=== PATIENT | female | born 1990 | race Caucasian/White ===

== ENCOUNTER → 2018-01-20 19:11 | Observation (INO) ==
--- NOTE | 2018-01-20 19:13 | OB/GYN Progress Note ---
Date of Encounter: 01/20/18 Time of Encounter: 19:10 - Assessment and Plan (1) 37 weeks gestation of Current Visit: Yes Status: Acute (2) Encounter for suspected PROM, with rupture of membranes not found Current Visit: Yes Status: Acute Nitrazine and fern negative. Discharged home with labor and when to return to triage precautions. Subjective - Subjective Interval history: 37+1 reports a trickle earlier this evening and concerned for SROM. Reports good movement, denies vaginal bleeding or contractions. Antepartum ROS: loss of fluid, movement normal, no vaginal bleeding, no contractions Objective - Vital Signs Vital Signs: Intake and Output 01/20/18 01/20/18 01/20/18 07:59 15:59 23:59 Other: Weight 105.5 kg Patient Weight 01/20/18 23:59 Weight 105.5 kg - Exam FHR: auscultation normal Abdomen: Present: normal appearance, soft, gravid
[2018-01-20 19:48] LABS: Amphetamine Screen,Urine Negative ng/mL (Cutoff=1000); Barbiturate Screen,Urine Negative ng/mL (Cutoff=200); Benzodiazepines Screen,Urine Negative ng/mL (Cutoff=200); Cannabinoid Screen,Urine Negative ng/mL (Cutoff = 50); Cocaine Screen,Urine Negative ng/mL (Cutoff= 300); Opiate Screen,Urine Negative ng/mL (Cutoff=300); Phencyclidine Screen,Urine Negative ng/mL (Cutoff=25)
== END | disposition home or self-care (01) ==
LOC: 1NENULAB
PROVIDERS: ADMIT Obstetrics & Gynecology; ATTEND Obstetrics & Gynecology

== ENCOUNTER 2018-02-02 08:00 | Inpatient (IN) ==
[2018-02-02] MEDS ORDERED: Naloxone 0.4 MG/ML INJ IVP PRN ×2 (08:31→14:51)
[2018-02-02] MEDS ORDERED: Ondansetron 4 MG/2 ML VIAL IVP PRN ×2 (08:31→14:51)
[2018-02-02] MEDS ORDERED: Metoclopramide 10 MG/2 ML VIAL IVP PRN (08:31)
[2018-02-02] MEDS ORDERED: miSOPROStol 25 MCG TABLET PO PRN (08:31)
[2018-02-02] MEDS ORDERED: Famotidine 20 MG/2 ML VIAL IVP PRN (08:31)
[2018-02-02] MEDS ORDERED: Ringers Solution, Lactated 1,000 ML IVC SCH (08:45)
[2018-02-02 09:04] LABS: Basophils % 0.5 %; Eosinophils # 0.1 K/mcL (0.0-0.6); Eosinophils % 0.9 %; Hematocrit 36.6 % (35.3-44.9); Hemoglobin 12.3 g/dL (11.5-15.4); Immature Granulocytes % 1.7 % (0-4); Lymphocytes # 1.8 K/mcL (0.6-4.6); Lymphocytes % 22.8 %; Mean Corpuscular HGB Conc 33.6 g/dL (31.6-35.5); Mean Corpuscular Hemoglobin 30.2 pg (28.0-33.3); Mean Corpuscular Volume 89.9 fL (83.0-100.0); Mean Platelet Volume 11.6 fL (9.4-12.4); Monocytes # 0.6 K/mcL (0.0-1.3); Monocytes % 7.7 %; Neutrophils # 5.2 K/mcL (1.6-8.9); Platelet Count 196 K/mcL (140-400); Red Blood Count 4.07 M/mcL (3.82-4.97); Red Cell Distribution Width 15.2 % (11.5-14.5); Segmented Neutrophils % 66.4 %
--- NOTE | 2018-02-02 09:31 | OB/GYN History & Physical ---
Date of Encounter: 02/02/18 Time of Encounter: 09:29 Assessment and Plan (1) Elective induction of labor planned Current visit: No Status: Acute Admit to labor and delivery Cytotec by mouth [address] cervical Etienne Nubain and epidural as desired Plan of care discussed with Dr. Cuevas Anticipate (2) 39 weeks gestation of Current visit: No Status: Chronic History of Present Illness HPI: Ms. Lucero is a 27 year old female 39+0 weeks gestation here for an elective induction of labor. care with Dr. Cuevas, uncomplicated course. Reports good movement, denies vaginal bleeding or leaking of fluid. Labs: A+, rubella and varicella immune, GBS negative, all other serologies negative Past Med Surg Social Fam HX - Past Medical History Medical history: no medical history Psychiatric history: no psych history - Past Surgical History Surgical History: other - Social History Smoking Status: Never smoker Smokeless Tobacco Status: No Alcohol use: none Drug use: none - Family History Mother Adopted: No Living Status: Age at : 19 Cause of : DE after child Hx Family Cardiac Disorders: Yes (cardiomyopathy, DE) Hx Family Respiratory Disorders: No Hx Family Cancer: No Hx Family GI Disorders: No Hx Family Genitourinary Disorders: No Hx Family Endocrine Disorder: No Hx Family Musculoskeletal Disorders: No Hx Family Neuromuscular Disorders: No Hx Family Neurologic Disorders: No Hx Family HEENT Disorders: No Hx Family Autoimmune Disorders: No Hx Family Reproductive Disorders: No Hx Family Psychosocial Disorders: No Hx Family Medical Disorders: No Obstetrical History - Pregnancies : 2 Para: 1 Term: 1 : 0 Ab's: 0 Livin Medications and Allergies Vit/FA 1 tab PO DAILY 06/14/15 [History] 3 Allergy/AdvReac Type Severity Reaction Status Date / Time No Known Allergies Allergy Verified 06/14/15 19:09 Exam - Constitutional Constitutional: well developed, well nourished, no acute distress, average body habitus - Neck Neck exam: full ROM - Lungs Respiratory exam: CTAB - Cardiovascular Cardiovascular exam: RRR - Abdomen Abdomen: Present: bowel sounds normal, gravid, non tender - Extremities Extremities exam: normal capillary refill, normal inspection - Cervix Dilation: 1 (per RN) Effacement: 50 Station: -2 Results Result Diagrams: 02/02/18 08:33 Abnormal lab results RDW 15.2 % (11.5-14.5) H 02/02/18 08:33 All other labs normal. - VTE Reasons for not Prescribing Prophylaxis: Treatment not Indicated - Low risk for VTE
[2018-02-02 10:18] LABS: Amphetamine Screen,Urine Negative ng/mL (Cutoff=1000); Barbiturate Screen,Urine Negative ng/mL (Cutoff=200); Benzodiazepines Screen,Urine Negative ng/mL (Cutoff=200); Cannabinoid Screen,Urine Negative ng/mL (Cutoff = 50); Cocaine Screen,Urine Negative ng/mL (Cutoff= 300); Opiate Screen,Urine Negative ng/mL (Cutoff=300); Phencyclidine Screen,Urine Negative ng/mL (Cutoff=25)
[2018-02-02] MEDS ORDERED: Oxytocin 20 units/ LR 1000 mL 20 UNIT/1,000 ML BAG IVC SCH ×2 (13:15→21:57)
[2018-02-02] MEDS ORDERED: *HR* FentaNYL (PF) 100 MCG/2 ML VIAL EP ONE (14:51)
[2018-02-02] MEDS ORDERED: EPHEDrine 50 MG/ML VIAL IVP PRN (14:51)
[2018-02-02] MEDS ORDERED: Bupivacaine-MPF 0.25% 10 ML VIAL EP ONE (14:51)
[2018-02-02] MEDS ORDERED: Epidural Premix (fent/bupiv) 110 ML EP ONE (14:52)
[2018-02-02] MEDS ORDERED: Epidural Premix (fent/bupiv) 110 ML EP SCH (15:00)
--- NOTE | 2018-02-02 15:36 | Anesthesia Evaluation PreOp ---
Date of Encounter: 02/02/18 Time of Encounter: 14:57 - Past History Planned Operation: SOMMER Cardiac History: Denies any Significant Hx Pulmonary History: Denies Any Significant HX FLOOR PLAN ADJUSTER History: Denies Any Significant HX Other Medical History: Denies Any Significant HX Anesthesia History: No Prior Anesthetic Complications, Past Anesthesia (T&A) : Yes Alcohol Use: none Drug use: none Medications and Allergies Vit/FA 1 tab PO DAILY 06/14/15 [History] 3 Allergy/AdvReac Type Severity Reaction Status Date / Time No Known Allergies Allergy Verified 06/14/15 19:09 - Meds/Allergy Pre-op Review Medications Reviewed: Yes Allergies Reviewed: Yes Beta Blockers on Current Med List: No Anesthesia Results - Labs 02/02/18 08:33 Anesthesia Exam BP 129/56 P 78 R 18 T 99.3 Height: 5'4" Weight: 105.7 NPO (# of Hours): 12 Pain Scale: 7 Pain Scale Used: Numeric (1 - 10) - HEENT Pupil (Motor): Pupils equal Mallampati: II Teeth: Normal Oral Opening: Greater than 3 - FLOOR PLAN ADJUSTER LOC: Oriented FLOOR PLAN ADJUSTER Motor: Normal RUE, Normal LUE, Normal RLE, Normal LLE, Normal Face FLOOR PLAN ADJUSTER Sensory: Normal: RUE, LUE, RLE, LLE, Face - Cardiac Rhythm: Regular Murmur: None JVD: No Carotid Bruit: No - Pulmonary Breath Sounds: bilateral Clear Respiratory Effort: Symmetrical Anesthesia Assess/Plan ASA Score: 2 Modified Dominick Scale for Level of Consciousness: Cooperative, oriented, and tranquil Anesthetic Plan: Regional Autologous Blood: No Monitoring Plan: Standard Monitors Recovery Plan: Other
--- NOTE | 2018-02-02 15:40 | Anesthesia Procedures ---
Date of Encounter: 02/02/18 Time of Encounter: 14:57 Procedures: Anesthesia - Epidural/Spinal Patient ID/Chart reviewed: Yes Patient examined: Yes OB Eval: Gestational age: 39 OB Eval: : 2 OB Eval: Hx Para: 1 OB Eval: Dilated at (cm): 5 OB Eval: Contractions: Non-stressed pattern Consent Obtained: Yes Supplemental Oxygen: None/Room Air Site Prep: Aseptic Technique, Sterile prep and drape, Povidone-Iodine 1% Patient position: upright Amount of Local Anesthetic used: 3 Touhy Needle Gauge: 18 Touhy Needle Depth (cm): 6 Catheter Depth at Skin (cm): 15 Test Dose (1.5% Lido + Epi): Volume given (mls): 3 Test Dose Result: Negative Loading Dose: 0.25% Marcaine (mls): 10 Loading Dose: Fentanyl (mcg): 100 Loading Dose Administered: Thru Catheter Infusion Med: 0.125% Bupivacaine w/ 2 mcg/ml Fentanyl Infusion Rate (mls/hr): [address]: Tegaderm, Tape Interspace Used: L3-L4 Loss of Resistance (STACIE): Yes Blood: No CSF: No Paresthesia: No Procedure: SOMMER placed 1st pass in upright position without any immediate noted complications. VSS and FHT stable throughout. Vitals + FHT's: 1457 129/56 P 78 R 18 1530 BP 106/65 P 80 R 16
--- NOTE | 2018-02-02 15:51 | OB Labor Progress Note ---
Date of Encounter: 02/02/18 Time of Encounter: 15:49 Labor Progress Note - Subjective Subjective: Pt comfortable with epidural - Cervix Cervix: 5/80/-3 - Heart Tones Heart Tones: 135/moderate/+accels/-decels - [place]: q2 - Plan Plan: Will AROM after hunt placement Continue pitocin per policy Frequent repositioning Dr. Cuevas updated Anticipate
--- NOTE | 2018-02-02 18:40 | OB Labor Progress Note ---
Date of Encounter: 02/02/18 Time of Encounter: 18:23 Labor Progress Note - Subjective Subjective: Patient very comfortable after her epidural. - Cervix Cervix: 6/80/-2 vertex - Heart Tones Heart Tones: Category 1 FHR tracing - [place]: q 2 minutes - Interventions Interventions: AROM with large amount of clear fluid - Plan Plan: Continue pitocin induction with anticipation of vaginal delivery.
--- NOTE | 2018-02-02 21:18 | OB/GYN Procedure Note ---
Delivery - Delivery Date: 02/02/18 Provider: Randa Cuevas Intrapartum events: none Delivery induction: AROM, oxytocin, hunt Delivery monitor: external FHT, external uterine Anesthesia: epidural Estimated Blood Loss: 200 - (s) A Delivery Date: 02/02/18 Delivery Time: 20:59 Presentation: vertex Position: OMAR Route of delivery: Gender: Male Viability: Viable Pounds: 7 Ounces: 10 Weight Gram: 3.465 kg at 1 minute: 8 at 5 mins: 9 Shoulder Dystocia: not encountered Specimens collected: cord blood Placenta: spontaneous Cord: 3 umbilical vessels - Repair Episiotomy: none Laceration Description: Perineal - 1st Degree - Complications Delivery complications: none Delivery comments: Called to room with patient complete and +1 station. Under maternal effort she delivered a viable male weighing 7 lbs. 10 oz. and Apgars 8 and 9 at one and 5 minutes respectively over a first-degree perineal laceration. Following delivery of the head the was bulb suctioned. There was no nuchal cord or shoulder dystocia encountered. Following delivery of the was placed on mom's abdomen. Cord was allowed to cease pulsations and then was double clamped and cut. Cord blood was collected. Placenta delivered spontaneously, complete, and intact with a three-vessel cord. First degree perineal laceration repaired using 3-0 Vicryl in standard fashion. Sponge and needle counts correct at the end of the procedure mother and recovering in the LDR in stable condition. - Disposition Mom disposition: stable in LDR disposition: stable in LDR
[2018-02-02] MEDS ORDERED: Acetaminophen 325 MG TABLET PO PRN (21:57)
[2018-02-02] MEDS ORDERED: Ibuprofen 600 MG TABLET PO PRN (21:57)
[2018-02-02] MEDS ORDERED: Oxytocin 20 units/ LR 1000 mL 20 UNIT/1,000 ML BAG IVC ONE (21:57)
[2018-02-03] MEDS ORDERED: Prenatal Vit/FA 1 EACH TABLET PO SCH (09:00)
--- NOTE | 2018-02-03 10:58 | Discharge Summary ---
Date of Encounter: 02/03/18 Time of Encounter: 10:56 - Discharge Diagnosis (1) Vaginal delivery Priority: Primary Status: Acute Comments: Pain well controlled with by mouth pain meds Out of bed without dizziness Tolerating regular diet Voiding normally Passing flatus, but no BM yet Lochia light Ambulating independently Discharge home tonight (2) Vaginal tear resulting from childbirth Priority: Secondary Status: Acute Comments: Continue witch vicky pads and dermoplast as needed - Discharge Medications Prescriptions: Ibuprofen [Motrin] 600 mg PO Q6HR PRN #30 tablet PRN Reason: Cramping Docusate [Colace] 100 mg PO BID #60 capsule Home Medications: Vit/FA 1 tab PO DAILY 06/14/15 [History] Acetaminophen [Tylenol] 650 mg PO Q6HR PRN tablet 02/03/18 [Rx] Docusate [Colace] 100 mg PO BID #60 capsule 02/03/18 [Rx] Ibuprofen [Motrin] 600 mg PO Q6HR PRN #30 tablet 02/03/18 [Rx] Allergies/Adverse Reactions: 3 Allergy/AdvReac Type Severity Reaction Status Date / Time No Known Allergies Allergy Verified 06/14/15 19:09 Data Procedures and tests throughout hospitalization: Laboratory Tests 02/02/18 02/02/18 08:33 09:55 WBC 7.8 RBC 4.07 Hgb 12.3 Hct 36.6 MCV 89.9 MCH 30.2 MCHC 33.6 RDW 15.2 H Plt Count 196 MPV 11.6 Immature Gran % 1.7 Seg Neutrophils % 66.4 Lymphocytes % 22.8 Monocytes % 7.7 Eosinophils % 0.9 Basophils % 0.5 Neutrophils # 5.2 Lymphocytes # 1.8 Monocytes # 0.6 Eosinophils # 0.1 Basophils # 0.0 Urine Opiates Screen Negative Ur Barbiturates Screen Negative Ur Phencyclidine Scrn Negative Ur Amphetamines Screen Negative U Benzodiazepines Scrn Negative Urine Cocaine Screen Negative U Marijuana (THC) Screen Negative Date of admission: 02/02/18 08:06 Primary care physician: PCP NONE Consults: 02/02/18 21:57 Consult to Track Layer [CONS] Routine Comment: Vaginal delivery, consult needed Discharging clinician: Rosina Barlow Anticipated date of discharge: 02/03/18 - Patient Status Disposition: Home, Self-Care Condition: Critical Functional capacity at discharge: independent ambulation Overall status at discharge: patient is progressing back to baseline - Discharge Instructions Follow Up With: NONE,PCP [Primary Care Provider] - Randa Cuevas DO [Partnered Physician] - - Diet and Activity Activity: increase activity as tolerated Diet: regular diet Hospital Course Reason for admission: induction of labor, IUP at term Delivery: Episiotomy: none Laceration: 1st degree Other procedures: none complications: none Discharge diagnosis: IUP at term delivered [place] baby: male Time Attestation: Total time spent providing and/or coordinating discharge services: Time Spent: Less than 30 minutes Exam - Constitutional Vitals: Temp Pulse Resp BP Pulse Ox 98.2 F 67 14 110/62 96 02/03/18 01:39 02/03/18 01:39 02/03/18 01:39 02/03/18 01:39 02/03/18 01:39 General appearance IM: A&O X 3 - Respiratory Respiratory exam: Present: CTAB - Cardiovascular Cardiovascular exam IM: Present: RRR, +S1, +S2 - GI/Abdominal GI/Abdominal exam IM: normal bowel sounds, no peritoneal signs - Rectal Rectal exam: deferred - Uterine Tone: Firm Uterus Position: At Umbilicus, Midline - Extremities Exam Extremities exam IM: Present: normal capillary refill, radial pulses palpable and symmetrical - Neurological Exam Neurological exam: alert, oriented X3 - Psychiatric Additional comments: Patient denies any history of anxiety or depression. Signs and symptoms of depression discussed and patient verbalizes when to call for help.
[2018-02-03 16:42] VITALS: BP 119/77
== END 2018-02-03 21:30 | disposition home or self-care (01) | DRG 775 ==
LOC: 1NENULAB 08:06 → 1NENUOBS 23:55
PROVIDERS: ADMIT Obstetrics & Gynecology; ATTEND Obstetrics & Gynecology

== ENCOUNTER → 2020-06-07 10:31 | Observation (INO) ==
[2020-06-07 09:23] LABS: Bilirubin,Urine Negative (Negative); Blood,Urine Moderate (Negative); Clarity,Urine Clear (Clear); Color,Urine Yellow (Yellow); Glucose,Urine (UA) Normal (Normal); Ketones,Urine Negative (Negative); Leukocyte Esterase,Urine Negative (Negative); Nitrite,Urine Negative (Negative); Protein,Urine Trace mg/dL (Neg-Trace); Specific Gravity,Urine >= 1.030 (1.010-1.025); Urobilinogen,Urine Normal (Normal)
[2020-06-07 09:40] LABS: Bacteria,Urine Few per hpf (None-Few); Calcium Oxalate Crystals,Urine Present; Mucus,Urine Few per lpf (None-Few); Squamous Epithelial Cell,Urine Few per hpf (None-Few)
== END | disposition home or self-care (01) ==
LOC: 1NENULAB
PROVIDERS: ADMIT Obstetrics & Gynecology; ATTEND Obstetrics & Gynecology

== ENCOUNTER 2020-07-17 23:00 | Inpatient (IN) ==
[2020-07-17] MEDS ORDERED: Azithromycin 500 MG in 0.9 % Sodium Chloride 250 ML IVPB ONE (23:02)
[2020-07-17] MEDS ORDERED: Metoclopramide 10 MG/2 ML VIAL IVP PRN (23:02)
[2020-07-17] MEDS ORDERED: Ondansetron 4 MG/2 ML VIAL IVP PRN (23:02)
[2020-07-17] MEDS ORDERED: *HR* FentaNYL (PF) 100 MCG/2 ML VIAL IVP PRN (23:02)
[2020-07-17] MEDS ORDERED: Lidocaine 1% 20 ML MDV ID PRN (23:02)
[2020-07-17] MEDS ORDERED: Famotidine 20 MG/2 ML VIAL IVP PRN (23:02)
[2020-07-17] MEDS ORDERED: Naloxone 0.4 MG/ML INJ IVP PRN (23:02)
[2020-07-17] MEDS ORDERED: Oxytocin 20 units/ LR 1000 mL 20 UNIT/1,000 ML BAG IVC SCH (23:15)
[2020-07-17] MEDS ORDERED: Ringers Solution, Lactated 1,000 ML IVC SCH (23:15)
[2020-07-18 00:04] LABS: Amphetamine Screen,Urine Negative ng/mL (Cutoff=1000); Barbiturate Screen,Urine Negative ng/mL (Cutoff=200); Benzodiazepines Screen,Urine Negative ng/mL (Cutoff=200); Cannabinoid Screen,Urine Negative ng/mL (Cutoff = 50); Cocaine Screen,Urine Negative ng/mL (Cutoff= 300); Opiate Screen,Urine Negative ng/mL (Cutoff=300); Phencyclidine Screen,Urine Negative ng/mL (Cutoff=25)
[2020-07-18 00:07] LABS: Basophils % 0.3 %; Eosinophils # 0.1 K/mcL (0.0-0.6); Eosinophils % 0.8 %; Hematocrit 34.6 % (35.3-44.9); Hemoglobin 11.6 g/dL (11.5-15.4); Immature Granulocytes % 0.6 % (0-4); Lymphocytes # 2.1 K/mcL (0.6-4.6); Lymphocytes % 23.4 %; Mean Corpuscular HGB Conc 33.5 g/dL (31.6-35.5); Mean Corpuscular Hemoglobin 30.4 pg (28.0-33.3); Mean Corpuscular Volume 90.6 fL (83.0-100.0); Mean Platelet Volume 11.3 fL (9.4-12.4); Monocytes # 0.8 K/mcL (0.0-1.3); Monocytes % 9.1 %; Neutrophils # 5.8 K/mcL (1.6-8.9); Platelet Count 242 K/mcL (140-400); Red Blood Count 3.82 M/mcL (3.82-4.97); Red Cell Distribution Width 14.2 % (11.5-14.5); Segmented Neutrophils % 65.8 %; White Blood Count 8.9 K/mcL (4.3-11.1)
[2020-07-18] MEDS ORDERED: EPHEDrine 50 MG/ML VIAL IVP PRN (04:14)
[2020-07-18] MEDS ORDERED: Epidural Premix (fent/bupiv) 110 ML EP SCH (04:15)
[2020-07-18] MEDS ORDERED: Bupivacaine-MPF 0.25% 10 ML VIAL ONE (04:21)
[2020-07-18] MEDS ORDERED: *HR* FentaNYL (PF) 100 MCG/2 ML VIAL ONE (04:21)
[2020-07-18] MEDS ORDERED: Oxytocin 20 units/ LR 1000 mL 20 UNIT/1,000 ML BAG IVC ONE (10:06)
[2020-07-18] MEDS ORDERED: Lanolin 7 G OINT...G. TP PRN (10:06)
[2020-07-18] MEDS ORDERED: Benzocaine/Menthol 56 GM AEROSOL SPRAY TP PRN (10:06)
[2020-07-18] MEDS ORDERED: Rho Immune Globulin 1,500 UNIT SYRINGE IM PRN (10:06)
[2020-07-18] MEDS ORDERED: Oxytocin 20 units/ LR 1000 mL 20 UNIT/1,000 ML BAG IVC SCH (10:06)
[2020-07-18] MEDS ORDERED: Acetaminophen 325 MG TABLET PO PRN (10:06)
[2020-07-18] MEDS: Prenatal Vit/FA 1 EACH TABLET PO SCH (10:27)
[2020-07-18] MEDS: Ibuprofen 600 MG TABLET PO PRN (17:54)
[2020-07-19] MEDS: Ibuprofen 600 MG TABLET PO PRN (04:44)
[2020-07-19 08:12] VITALS: BP 106/65
[2020-07-19] MEDS: Prenatal Vit/FA 1 EACH TABLET PO SCH (09:15)
== END 2020-07-19 13:20 | disposition home or self-care (01) | DRG 807 ==
LOC: 1NENULAB 23:01 → 1NENUOBS 07-18 09:42
PROVIDERS: ADMIT Obstetrics & Gynecology; ATTEND Obstetrics & Gynecology